=== PATIENT | female | born 1940 | race African-American/Black ===

== ENCOUNTER 2020-04-22 01:21 | Emergency (ER) | payer MEDICARE ==
[~2020-04-22] VITALS: Ht 170.2 cm; Wt 95.5 kg
[2020-04-22] MEDS ORDERED: AMLO-258 PO (01:32)
[2020-04-22] MEDS ORDERED: ESTR1PAT77 TP (01:32)
[2020-04-22] MEDS ORDERED: METF-911 PO (01:32)
[2020-04-22] MEDS ORDERED: VALS160T2 PO (01:32)
[2020-04-22] MEDS ORDERED: APIX5TAB PO (01:32)
[2020-04-22] MEDS ORDERED: HYDR-1475 PO (01:32)
[2020-04-22] MEDS ORDERED: FLEC50 PO (01:32)
[2020-04-22] MEDS ORDERED: DILTIAZEM HCL 5 MG/ML 5 ML VIAL IVP ONE (01:45)
[2020-04-22 02:12] LABS: ANION GAP 19 mmol/L (8-16); CALCIUM, TOTAL 10.1 mg/dL (8.8-10.5); CARBON DIOXIDE 21 mmol/L (22-29); CHLORIDE 98 mmol/L (98-107); CREATININE 1.43 mg/dL (0.60-1.30); GLOMERULAR FILTR. RATE CALC 43 mL/min (>60); GLUCOSE,RANDOM 146 mg/dL (70-110); HEMATOCRIT 38.5 % (36-46); POTASSIUM 3.2 mmol/L (3.5-5.1); PROTHROMBIN TIME 10.3 SEC (9.4-11.6); SODIUM SERUM 138 mmol/L (136-145); UREA NITROGEN, BLOOD 21 mg/dL (7-18)
[2020-04-22 02:26] LABS: HEMOGLOBIN 13.4 g/dL (12.0-16.0); MEAN CORPUSCULAR HEMOGLOBIN 26.7 pg (26.0-34.0); MEAN CORPUSCULAR HGB CONC 34.8 G/dL (31.0-37.0); MEAN CORPUSCULAR VOLUME 77 fL (80-100); PLATELET COUNT (AUTO) 411 K/uL (150-450); RED BLOOD CELL COUNT(AUTO) 5.02 MIL/uL (4.00-5.20); RED CELL DISTRIBUTION WIDTH 15.1 % (11.5-14.5)
[2020-04-22 02:33] LABS: ALANINE AMINOTRANSFERASE 21 U/L (12-78); ALBUMIN 3.6 g/dL (3.4-5.0); ALKALINE PHOSPHATASE 52 U/L (46-116); ASPARTATE AMINOTRANSFERASE 21 U/L (15-37); BILIRUBIN,TOTAL 0.3 mg/dL (0.1-1.0); CREATINE KINASE, TOTAL ONLY 175 U/L (26-192); FREE T4 (FREE THYROXINE) 1.16 ng/dL (0.76-1.46); LIPASE 229 U/L (73-393); THYROID STIMULATING HORMONE 5.52 uIU/mL (0.36-3.74); TOTAL PROTEIN, SERUM 7.9 g/dL (6.4-8.2)
[2020-04-22 02:37] LABS: LACTIC ACID 2.9 mmol/L (0.4-2.0)
[2020-04-22 02:39] LABS: BAND NEUTROPHILS % (MANUAL) 0 % (0-5)
[2020-04-22 02:41] LABS: EOSINOPHILS % (MANUAL) 2 % (1-6); LYMPHOCYTES % (MANUAL) 62 % (22-44); MONOCYTES % (MANUAL) 5 % (2-9); SEGMENTED NEUTROPHILS % 31 % (40-70)
[2020-04-22 02:43] LABS: COVID AG,FIA SOURCE NASOPHARYNGEAL
[2020-04-22] MEDS ORDERED: POTASSIUM CHLORIDE 10% 40 MEQ/30 ML LIQUID UDCUP PO ONE (02:45)
[2020-04-22 02:53] LABS: B-TYPE NATRIURETIC PEPTIDE 33 pg/mL (0-100)
[2020-04-22 03:05] VITALS: BP 122/63
== END 2020-04-22 03:31 | disposition left against medical advice (07) ==
LOC: EMS 01:21
DX: I49.8 Other specified cardiac arrhythmias (principal); I48.91 Unspecified atrial fibrillation; I10 Essential (primary) hypertension; E11.9 Type 2 diabetes mellitus without complications; Z20.828 Contact with and (suspected) exposure to other viral communicable diseases; Z88.0 Allergy status to penicillin; Z88.1 Allergy status to other antibiotic agents; Z79.84 Long term (current) use of oral hypoglycemic drugs; Z79.899 Other long term (current) drug therapy
CPT/HCPCS: 36415; 71045; 80053; 82550; 82962; 83605; 83690; 83735; 83880; 84439; 84443; 84484; 85025; 85610; 85730; 87426; 93005; 96374; 99291; J3490